=== PATIENT | male | born 1975 | race Caucasian/White ===

== ENCOUNTER 2018-08-08 13:00 | Day surgery (SDC) | payer OTHER, SELFPAY ==
[2018-07-23 08:53] VITALS: BMI 47.0
[2018-08-08] VITALS (8 sets, daily range): BP systolic 118–164; BP diastolic 72–110; PULSE 68–96; RESP 12–26; TEMP 36.3–36.9; O2SAT 94–98; BMI 47.0
[2018-08-08] MEDS: LACTATED RINGERS 1,000 ML 42 ML IV (13:46)
--- NOTE | 2018-08-08 14:15 | PM.PREOP ---
Pre-operative Note Interval Note Pre-op Check: Yes History & Physical Reviewed by Physician and Yes Exam Performed Changes: No
--- NOTE | 2018-08-08 14:30 | PM.OP.1 ---
Operative Date/Time/Diagnoses Date of procedure: 08/08/18 Pre-op diagnosis: Medial meniscal tear right knee Post-op diagnosis: other ( 1. Medial meniscal tear right knee 2. 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 The nature of the procedure including the risks and benefits, alternatives, postoperative course and expected outcome were discussed and all questions answered. Consent was obtained. Operative site confirmed and marked. Surgeon: Renan Bonilla Click Yes if Unassisted: Yes Anesthesia Type: General Operative Notes Findings: Examination under anesthesia was unremarkable. Arthroscopic evaluation revealed a flap-type tear of the posterior horn of the medial meniscus. This was trimmed to stable rim of the basket and shaver. There is some mild stable grade 1-2 chondromalacia of the weight-bearing surface of the medial femoral condyle. There was also some grade 1-2 chondromalacia of the central patella. There is some small loose piece of cartilage which were lightly debrided. The remainder of the arthroscopy was unremarkable. Closure Type: primary Specimen(s): none sent Estimated Blood Loss (mL): 5 Blood products transfused: none Tourniquet time (min): 15 Procedure in detail: The patient was taken to the operative suite and given prophylactic antibiotics. Examination under anesthesia was performed. The leg was then prepped and draped in usual sterile fashion. The leg was exsanguinated with an Esmarch dressing and the tourniquet raised to 250 torr. The portal sites were anesthetized with 1% lidocaine with epinephrine and then established with an 11 blade. Medial and lateral parapatellar working portals were utilized. The scope was placed into the medial portal and into the lateral compartment of the knee. The knee was placed in the figure 4 position. The knee was then allowed to hang down at 90? and the notch evaluated. The knee was then extended and the scope switched to the lateral portal and placed up in the anterior compartment. The patellofemoral joint, medial gutter, lateral gutter and suprapatellar pouch were inspected. A valgus force was then placed across the knee over lateral stress post and the medial compartment was evaluated. See specific findings and procedures above. The arthroscopy was completed and the knee drained. The knee was filled with 30 mL of 0.5% ropivacaine and 4 of morphine. The portal sites were closed with Steri-Strips. A sterile gauze and Catalino wrap dressing was applied. The patient tolerated procedure well and was returned to recovery room in good condition. Condition: stable Disposition: same day surgery Plan for aftercare: The patient was slowly progressive weight-bearing and activity as tolerated. Clinic follow-up in 2 weeks.
[2018-08-08] MEDS: CEFAZOLIN VIAL 3 GM in SODIUM CHLORIDE 0.9% 100 ML 200 ML IV (14:42)
[2018-08-08] MEDS: LIDOCAINE 1% W/EPI INJ 20 ML INJ (15:04)
--- NOTE | 2018-08-08 15:08 | SUR.OPER ---
Supine on padded OR bed. Pillow under head, arms secured on padded armboards <90 degree abduction. Safety belt across torso. Non-operative leg secured with tape over blanket over lower leg. Operative leg secured in De[employer]o/Rocky positioner. Foam padded brace at thigh of operative leg.
[2018-08-08] MEDS: ROPIVACAINE 0.5% PF 5 MG/ML 20ML AMP 10 ML INJ (15:22)
[2018-08-08] MEDS: OXYCODONE/ACETAMINOPHEN 5/325 TABLET 1 TAB PO (15:50)
[2019-09-18 14:58] VITALS: BMI 47.0
== END 2018-08-08 16:10 | disposition home or self-care (01) ==
PROVIDERS: PCP Internal Medicine; Visit Provider Orthopaedic Surgery
PROC: (CPT 29870; principal; 2018-08-08 14:30)
DX: S83.241A Other tear of medial meniscus, current injury, right knee, initial encounter (principal); M17.11 Unilateral primary osteoarthritis, right knee; M22.41 Chondromalacia patellae, right knee; M94.261 Chondromalacia, right knee
CPT/HCPCS: 29881; J0690; J1885; J2405; J2704; J2795; J3010

== ENCOUNTER → 2019-09-13 16:24 | Outpatient (CLI) | payer OTHER, SELFPAY | PROVIDERS: Family Provider Internal Medicine; PCP Internal Medicine; Visit Provider Orthopaedic Surgery | DX: S46.212A Strain of muscle, fascia and tendon of other parts of biceps, left arm, initial encounter (principal); Z53.20 Procedure and treatment not carried out because of patient's decision for unspecified reasons ==

== ENCOUNTER → 2019-09-16 16:25 | Outpatient (CLI) | payer OTHER, SELFPAY ==
--- NOTE | 2019-09-16 | DI.MRI.S_ITS ---
PROCEDURE: MR ELBOW LT W CON INDICATIONS: Strain of muscle, fascia and tendon of other parts TECHNIQUE: After the administration of 3-4 mL of dilute intra-articular Gadolinium contrast into the elbow, coronal T1 spin echo with fat saturation and T2 fast spin echo with fat saturation, axial T1 spin echo and T2 fast spin echo with fat saturation, sagittal T1 spin echo and T2 fast spin echo with fat saturation through the elbow. COMPARISON: None. FINDINGS: Image quality: Excellent. Lateral structures: The radial collateral ligament is mildly thickened and intermediate in signal consistent with sequelae of a mild sprain. The lateral ulnar collateral ligament and annular ligament appear intact. The overlying common extensor tendon demonstrates mild tendinopathy with mild cystic change at its origin. Medial structures: The ulnar collateral ligament appears intact. The overlying common flextor tendon appears normal. The ulnar nerve appears normal in size and signal within the cubital tunnel. Anterior structures: There is a complete rupture of the biceps tendon from its insertion with retraction proximally by approximately 6.3 cm with edema and fluid along its expected course. There is tearing extending into the myotendinous junction more proximally. The brachialis tendon appears intact. There is a small amount of bicipitoradial bursal fluid. The median and radial neurovascular bundles appear normal; no focal muscle atrophy to suggest nerve impingement. Posterior structures: The triceps tendon appears intact. No olecranon bursal fluid. Bone and cartilage: No bone marrow contusions or fractures. No osteochondral injuries. IMPRESSION: 1. Complete rupture of the biceps tendon from its insertion with retraction proximally as described. 2. Sequelae of a mild sprain of the radial collateral ligament. Dictated by: Renan Monroy M.D. on 09/17/2019 at 8:44 Approved by: Renan Monroy M.D. on 09/17/2019 at 9:29
== END ==
PROVIDERS: Family Provider Internal Medicine; PCP Internal Medicine; Visit Provider Orthopaedic Surgery
DX: S46.212A Strain of muscle, fascia and tendon of other parts of biceps, left arm, initial encounter (principal); X58.XXXA Exposure to other specified factors, initial encounter
CPT/HCPCS: 73222

== ENCOUNTER 2019-09-23 08:54 | Day surgery (SDC) | payer OTHER, SELFPAY ==
[2019-09-18 15:07] VITALS: BMI 43.7
[2019-09-23] VITALS (12 sets, daily range): BP systolic 100–173; BP diastolic 37–114; PULSE 82–107; RESP 6–20; TEMP 36.2–36.7; O2SAT 90–96; BMI 47.0
--- NOTE | 2019-09-23 10:33 | PM.PREOP ---
Pre-operative Note Interval Note History & Physical reviewed/Exam performed by Physician: Yes Changes to H&P: No
[2019-09-23] MEDS: LACTATED RINGERS 1,000 ML 42 ML IV ×2 (10:45→13:31)
[2019-09-23] MEDS: CEFAZOLIN 2 GM/100 ML FROZ.PIGGY IV (10:55)
--- NOTE | 2019-09-23 11:21 | SUR.OPER ---
Supine on padded OR bed, head on pillow, right arm secured on padded arm board at <90 degrees abduction, left arm on large padded arm board controlled by surgical team, legs uncrossed, safety belt at thig, tape over blanket over lower legs.
[2019-09-23] MEDS: BUPIVACAINE 0.5% W/ EPI (PF) VIAL 30 ML INJ (11:36)
--- NOTE | 2019-09-23 13:07 | PM.OP.1 ---
Operative Date/Time/Diagnoses Date of procedure: 09/23/19 Time of procedure: 11:00 Pre-op diagnosis: Left distal biceps rupture Post-op diagnosis: same Procedure & Clinicians Procedure: Left distal biceps repair Same procedure as scheduled: Yes Indications: Complete rupture of the left distal biceps Surgeon: Clif Diallo [employer] Supervisor: Mercedes Santiago Anesthesia Type: General Operative Notes Findings: Complete rupture of the distal biceps with about 8 cm of retraction. Significant amount of scarring of the distal biceps tendon as well as surrounding musculature. Closure Type: primary Specimen(s): none sent Applied: implant(s) (Endo button and tenodesis screw) Estimated Blood Loss (mL): 20 Blood products transfused: none Tourniquet time (min): 90 Procedure in detail: On date of service, patient was met in the holding area. Operative site was signed and witnessed by the OR staff. The surgery once again discussed with patient and any remaining questions they had were answered fully. Patient was taken back to the operating theater and placed on the operating table in the supine position. Great care taken to ensure that all bony prominences were properly padded. A well-padded tourniquet was placed up along the upper extremity. A timeout was performed to verify patient's name, procedure, and operative site. A diagonal incision was made starting at proximal medial and going to distal radial. The lateral antecubital cutaneous nerve was identified and protected. Patient had a chronic rupture that had retracted beyond the antecubital fossa. The tendon had rolled up into a ball which was quite scarred in. Pickups and Metzenbaum scissors were used to remove the pseudo tendinous tissue as well as the scar tissue allowing us to on roll the tendon back out into its normal position. Blunt dissection was also used to remove the significant amount of scar tissue around biceps muscle. This helped improve the overall excursion of the tendon at as well as the musculature. We then turned our attention to the bicipital tuberosity. Blunt dissection was performed allowing us to get down to the proximal radius. It was quite a bit of pseudo tendinous material around the bicipital tuberosity. This was sharply excised and the bony attachment was debrided using a periosteal elevator. Next, A guidewire was placed through the bicipital tuberosity. The proximal aspect of the cortex was drilled to 8 mm. The wound was then loosely irrigated to remove any bony fragments. The distal cortex was drilled to 4 mm. Sutures were then placed through the lateral holes of the Endo button. These were then placed into the guidewire and passed through a bony tunnel and out the forearm. Those marionette Sutures were used to flip the Endobutton and put it into its appropriate position as a buttress. This provided a swift repair of the biceps tendon. Next, a tenodesis screw was placed for additional fixation of the distal biceps tendon. The wound was copiously irrigated again and closed in a layered fashion. Patient was cleaned dried and dressed and he was placed into a splint. Patient was taken to the PACU in stable condition. Postoperatively, neurovascular check was done to the hand. Patient had a 2+ radial pulse and brisk cap refill. Patient had no signs of any posterior interosseous nerve dysfunction. Patient was able to easily fully extend the fingers and the thumb. Complications: none Post-operative Condition: stable Disposition: PACU Plan for aftercare: Patient will follow our postoperative protocol for distal biceps repair
[2019-09-23] MEDS: HYDROMORPHONE 2 MG INJ IV ×4 (13:18→13:58)
[2019-09-23] MEDS: OXYCODONE/ACETAMINOPHEN 5/325 TABLET 1 TAB PO ×2 (13:38→14:24)
--- NOTE | 2019-09-23 14:40 | SUR.PHASEII ---
Pt with fluctuating O2 sats of 88-95% on 1 L of O2 via NC. Checked O2 sats on both hands and on earlobe with same results. Pt awake, alert, deep breathing, and using incentive spirometer. Breath sounds clear in all lung [place]. Notified MD West of these findings. MD West ok for pt to be discharged with instructions to continue using incentive spirometer at home every hour when awake and to sleep upright in a recliner for tonight. These instructions were added to pt's discharge instructions and reviewed with the pt and the pt's .
--- NOTE | 2019-09-23 15:17 | SUR.PHASEII ---
Patient c/o feeling hot and sweaty after IV discontinued and after using bathroom. Patient denies nausea, CP or SOB. Recheck of vital signs are 179/99, HR 104, oxygen sat 90% on room air. Sprite provided. Cool cloth provided. Wheeled patient out to POV with .
--- NOTE | 2019-09-23 16:56 | PM.PNPO.1 ---
Subjective Subjective Date Patient Seen: 09/23/19 Time Patient Seen: 14:56 Interval history: Mr. Arroyo is s/p distal biceps repair. He meets discharge criteria from Phase 2 recovery other than O2 sats in the low 90's on room air. They improve with incentive spirometry. He is not overly sedated. He does not have any dyspnea. No other history of Pulmonary disease. He can be discharged home. He was given IS with instructions to use it over the course of the rest of the day and into this evening. Exam Vital Signs (past 8 hours): - 09/23/19 09:13 09/23/19 12:59 09/23/19 13:05 Temperature 98.1 F 97.3 F L Pulse Rate 82 107 H 99 H Respiratory Rate 16 6 L 17 Blood Pressure 168/114 H 137/88 100/50 L Pulse Oximetry 96 93 90 L 09/23/19 13:10 09/23/19 13:15 09/23/19 13:17 Temperature Pulse Rate 100 H 105 H 100 H Respiratory Rate 11 L 15 11 L Blood Pressure 168/59 H 135/37 L 168/59 H Pulse Oximetry 94 92 94 09/23/19 13:19 09/23/19 13:24 09/23/19 13:39 Temperature Pulse Rate 100 H 104 H 102 H Respiratory Rate 10 L 17 13 Blood Pressure 155/58 H 173/64 H 139/95 H Pulse Oximetry 95 92 96 09/23/19 13:54 09/23/19 14:10 09/23/19 14:27 Temperature 98.1 F 97.2 F L Pulse Rate 105 H 102 H 102 H Respiratory Rate 12 15 20 Blood Pressure 125/93 H 149/97 H 140/91 H Pulse Oximetry 94 92 95 Oxygen Delivery Method Nasal Cannula Oxygen Flow Rate 1 Assessment & Plan Post-op Postoperative Procedures: Procedures Operation Date: 09/23/19 10:45 Actual Procedures Side Surgeon p Biceps Tendon Repair, Distal Left Clif Diallo MD
== END 2019-09-23 15:19 | disposition home or self-care (01) ==
PROVIDERS: Family Provider Internal Medicine; PCP Internal Medicine; Visit Provider Orthopaedic Surgery
PROC: (CPT 24341; principal; 2019-09-23 10:45)
DX: S46.212A Strain of muscle, fascia and tendon of other parts of biceps, left arm, initial encounter (principal); X50.0XXA Overexertion from strenuous movement or load, initial encounter
CPT/HCPCS: 24342; J0690; J1100; J1170; J2405; J2704; J3010